=== PATIENT | male | born 1985 | race African-American/Black ===

== ENCOUNTER 2020-12-06 08:55 | Emergency (ER) | payer MEDICAID ==
[~2020-12-06] VITALS: Ht 182.9 cm; Wt 79.0 kg
[2020-12-06] MEDS ORDERED: KETOROLAC 60MG/2ML VIAL IM ONE (10:30)
[2020-12-06 11:30] VITALS: BP 117/78
== END 2020-12-06 11:35 ==
LOC: ER 09:05
DX: S30.0XXA Contusion of lower back and pelvis, initial encounter (principal); Y35.393A Legal intervention involving other blunt objects, suspect injured, initial encounter; Y93.89 Activity, other specified; Y92.488 Other paved roadways as the place of occurrence of the external cause
CPT/HCPCS: 71250; 74176; 96372; 99284; J1885